=== PATIENT | female | born 1960 | race Caucasian/White ===

== ENCOUNTER → 2017-01-07 | Outpatient (CLI) | payer BC ==
--- NOTE | 2017-01-08 11:45 | MM ---
Reason for exam: screening (asymptomatic). Last mammogram was performed 1 year and 3 months ago. Physical Findings: A clinical breast exam by your physician is recommended on an annual basis and results should be correlated with mammographic findings. MG Screening Mammo w CAD Bilateral CC and MLO view(s) were taken. Prior study comparison: October 03, 2015, bilateral MG screening mammo w CAD. August 24, 2014, bilateral MG screening mammo w CAD. There are scattered fibroglandular densities. No significant changes when compared with prior studies. ASSESSMENT: Benign, BI-RAD 2 RECOMMENDATION: Routine screening mammogram of both breasts in 1 year.
== END | disposition home or self-care (01) ==
LOC: RADMAMWWP 15:23
PROVIDERS: ATTEND Family Medicine
DX: Z12.31 Encounter for screening mammogram for malignant neoplasm of breast (principal)

== ENCOUNTER → 2018-02-09 | Outpatient (CLI) | payer BC ==
--- NOTE | 2018-02-11 07:06 | MM ---
Reason for exam: screening (asymptomatic). Last mammogram was performed 1 year and 1 month ago. Physical Findings: A clinical breast exam by your physician is recommended on an annual basis and results should be correlated with mammographic findings. MG Screening Mammo w CAD Bilateral CC and MLO view(s) were taken. Prior study comparison: January 07, 2017, bilateral MG screening mammo w CAD. October 03, 2015, bilateral MG screening mammo w CAD. The breast tissue is heterogeneously dense. This may lower the sensitivity of mammography. No suspicious abnormality. No significant changes when compared with prior studies. ASSESSMENT: Negative, BI-RAD 1 RECOMMENDATION: Routine screening mammogram of both breasts in 1 year.
== END ==
LOC: RADMAMWWP 15:19
PROVIDERS: ATTEND Family Medicine
DX: Z12.31 Encounter for screening mammogram for malignant neoplasm of breast (principal)
CPT/HCPCS: 77067

== ENCOUNTER → 2018-02-22 | Outpatient (CLI) | payer BC ==
--- NOTE | 2018-02-23 11:35 | ECHOF ---
Referral Reason:R60.9 Edema MEASUREMENTS -------- HEIGHT: 170.2 cm WEIGHT: 95.3 kg BP: 146/70 IVSd: 1.5 cm (0.6 - 1.1) LVIDd: 3.3 cm (3.9 - 5.3) LVPWd: 1.6 cm (0.6 - 1.1) IVSs: 1.6 cm LVIDs: 1.9 cm LVPWs: 1.7 cm Ao Diam: 3.0 cm (2.0 - 3.7) AV Cusp: 2.3 cm (1.5 - 2.6) LA Diam: 3.1 cm (2.7 - 3.8) MV EXCURSION: 10.759 mm (> 18.000) MV EF SLOPE: 54 mm/s (70 - 150) EPSS: 1.2 cm MV E Richard: 0.47 m/s MV DecT: 144 ms MV A Richard: 0.81 m/s MV E/A Ratio: 0.58 RAP: 5.00 mmHg RVSP: 10.49 mmHg FINDINGS -------- Sinus rhythm. This was a technically good study. The left ventricular size is normal. There is moderate concentric left ventricular hypertrophy. O verall left ventricular systolic function is normal with, an EF between 55 - 60 %. The right ventricle is normal in size and function. The left atrium is normal in size. The right atrium is normal in size. The aortic valve is trileaflet, and appears structurally normal. No aortic stenosis or regurgitation. There is trace mitral regurgitation. Trace tricuspid regurgitation present. The right ventricular systolic pressure, as measured by Dopp ler, is 10.49mmHg. Pulmonic valve appears structurally normal. The aortic root size is normal. There is a trivial pericardial effusion present. CONCLUSIONS -------- 1. Sinus rhythm. 2. This was a technically good study. 3. The left ventricular size is normal. 4. There is moderate concentric left ventricular hypertrophy. 5. Overall left ventricular systolic function is normal with, an EF between 55 - 60 %. 6. The right ventricle is normal in size and function. 7. The left atrium is normal in size. 8. The right atrium is normal in size. 9. The aortic valve is trileaflet, and appears structurally normal. No aortic stenosis or regurgitati on. 10. There is trace mitral regurgitation. 11. Trace tricuspid regurgitation present. 12. The right ventricular systolic pressure, as measured by Doppler, is 10.49mmHg. 13. Pulmonic valve appears structurally normal. 14. The aortic root size is normal. 15. There is a trivial pericardial effusion present. RECREATION PROGRAMMER: Henrietta Richards RDCS
== END | disposition home or self-care (01) ==
LOC: RADECHMAIN 14:46
PROVIDERS: ATTEND Family Medicine
DX: I51.7 Cardiomegaly (principal); I31.3 Pericardial effusion (noninflammatory)
CPT/HCPCS: 93306

== ENCOUNTER 2018-02-28 11:19 | Emergency (ER) | payer BC, OTHER ==
[2018-02-28 11:25] VITALS: BP 168/90; PULSE 94; RESP 20; TEMP 98
--- NOTE | 2018-02-28 11:34 | ED ---
General Adult HPI - General Chief complaint: Extremity Injury, Upper Stated complaint: Wrist Injury-[facility] Time Seen by Provider: 02/28/18 11:28 Source: patient, RN notes reviewed Mode of arrival: ambulatory Limitations: no limitations - History of Present Illness Initial comments: Patient 57-year-old female presented to the emergency room today with a chief complaint of injury to the left wrist. 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 She states is worse with certain movements of supination. Patient denies any other complaints or symptoms. Patient denies any recent fever, chills, shortness of breath, chest pain, back pain, abdominal pain, nausea or vomiting, numbness or tingling, headaches or visual changes, or any other complaints. - Related Data Home Medications Medication Instructions Recorded Confirmed Aspirin EC [Ecotrin Low Dose] 81 mg PO DAILY 03/10/16 03/10/16 Atorvastatin [Lipitor] 10 mg PO DAILY 03/10/16 03/10/16 HYDROcodone/APAP 7.5-325MG [[place] 1 tab PO Q4H PRN 03/10/16 03/10/16 7.5-325] Ibuprofen [Ibuprofen] 600 mg PO Q6H PRN 03/10/16 03/10/16 Krill Oil 500 mg PO DAILY 03/10/16 03/10/16 Lidocaine 5% Ointment 1 applic TOPICAL BID 03/10/16 03/10/16 Multivitamins, Thera [Multivitamin] 1 tab PO DAILY 03/10/16 03/10/16 Mupirocin 2% Oint [Bactroban Oint] 1 applic TOPICAL BID 03/10/16 03/10/16 Omeprazole [PriLOSEC] 20 mg PO BID 03/10/16 03/10/16 Phentermine HCl [Adipex-P] 37.5 mg PO DAILY 03/10/16 03/10/16 Ranitidine HCl 150 mg PO DAILY 03/10/16 03/10/16 Sulfamethox-Tmp 800-160Mg [Bactrim 1 tab PO BID 03/10/16 03/10/16 DS 800-160 mg] Ubidecarenone [Co Q-10] 100 mg PO DAILY 03/10/16 03/10/16 amLODIPine BES/OLMESARTAN MED 1 tab PO DAILY 03/10/16 03/10/16 [Margo 5-20 mg Tablet] amLODIPine BESYLATE [Amlodipine 5 mg PO DAILY 03/10/16 03/10/16 Besylate] Previous Rx's Medication Instructions Recorded Sulfamethox-Tmp 800-160Mg [Bactrim 2 each PO Q12HR #56 tab 03/10/16 DS 800-160 mg] Allergies Allergy/AdvReac Type Severity Reaction Status Date / Time quinine Allergy Nausea & Verified 02/28/18 11:25 Vomiting Review of Systems ROS Statement: Those systems with pertinent positive or pertinent negative responses have been documented in the HPI. ROS Other: All systems not noted in ROS Statement are negative. Past Medical History Past Medical History: GERD/Reflux, Hypertension Additional Past Medical History / Comment(s): kidney stones History of Any Multi-Drug Resistant Organisms: None Reported Past Surgical History: Bladder Surgery, Hysterectomy Additional Past Surgical History / Comment(s): Partial Hysterectomy Past Anesthesia/Blood Transfusion Reactions: No Reported Reaction Past Psychological History: No Psychological Hx Reported Smoking Status: Never smoker Past Alcohol Use History: Occasional Past Drug Use History: None Reported - Past Family History Father Family Medical History: Coronary Artery Disease (CAD) Additional Family Medical History / Comment(s): CABG Brother(s) Family Medical History: Coronary Artery Disease (CAD) Additional Family Medical History / Comment(s): STENTS, CABG General Exam - General Exam Comments Initial Comments: General: The patient is awake and alert, in no distress, and does not appear acutely ill. Neck: The neck is supple, there is no tenderness or JVD. Musculoskeletal: Patient has normal appearance of the left wrist obvious deformity. Shows good range of motion all directions. No point tenderness of left shoulder, left elbow. No tenderness down into the digits. Patient does have mild tenderness to stool ulna. Patient is able to pronate and supinate. Able to fully extend and flex. Strength 4/5 due to pain. Sensations are intact pulses 2+. Neurological: A&O x 3. CN II-XII intact, There are no obvious motor or sensory deficits. Coordination appears grossly intact. Speech is normal. Skin: Skin is warm and dry and no rashes or lesions are noted. Psychiatric: Normal mood and affect. Limitations: no limitations Course Vital Signs 02/28/18 11:23 Temperature 98.0 F Pulse Rate 94 Respiratory 20 Rate Blood Pressure 168/90 O2 Sat by Pulse 98 Oximetry Medical Decision Making - Medical Decision Making X-rays reviewed negative for any acute fracture dislocation. Results were discussed with the patient per patient will be discharged home. Patient advised follow-up with employee health. Advised to continue to ice elevate the affected area. Advised use Wellington wrap for comfort Disposition Clinical Impression: Wrist sprain Disposition: HOME SELF-CARE Condition: Good Instructions: Wrist Sprain (ED) Additional Instructions: Please use ibuprofen for pain. Please continue to ice elevate the affected area at least 4 times a day for 20 minutes at a time. Please follow-up with employee health for further evaluation of the next 2 days. Please return to emergency room if the symptoms increase or worsen or for any other concerns. Referrals: Johnny Pruitt MD [Primary Care Provider] - 1-2 days Time of Disposition: 12:10
--- NOTE | 2018-02-28 11:49 | XR ---
EXAMINATION TYPE: XR wrist complete LT , 4 VIEWS DATE OF EXAM ORDERED: 02/28/2018 HISTORY: Pain. COMPARISON: None. FINDINGS: No fracture, dislocation or other acute osseous lesion is seen. IMPRESSION: NORMAL LEFT WRIST.
== END 2018-02-28 12:44 | disposition home or self-care (01) ==
LOC: EC 11:19
DX: S63.502A Unspecified sprain of left wrist, initial encounter (principal); K21.9 Gastro-esophageal reflux disease without esophagitis; I10 Essential (primary) hypertension; Z79.82 Long term (current) use of aspirin; Z79.899 Other long term (current) drug therapy; Z88.8 Allergy status to other drugs, medicaments and biological substances; X50.0XXA Overexertion from strenuous movement or load, initial encounter; Y93.89 Activity, other specified; Y92.69 Other specified industrial and construction area as the place of occurrence of the external cause; Y99.0 Civilian activity done for income or pay
CPT/HCPCS: 99283

== ENCOUNTER → 2018-03-02 | Outpatient (CLI) | payer OTHER ==
--- NOTE | 2018-03-02 11:29 | XR ---
EXAMINATION TYPE: XR shoulder complete LT DATE OF EXAM: 03/02/2018 COMPARISON: NONE HISTORY: 57 year-old female left shoulder sprain, pain for 3 days after lifting TECHNIQUE: 3 views FINDINGS: Mild degenerative change at the AC joint. The joint remains congruent. Subacromial space is preserved . No tendinous or bursal calcifications. No acute fracture, subluxation, or dislocation. IMPRESSION: No acute osseous abnormality seen. Mild AC joint OA.
== END | disposition home or self-care (01) ==
LOC: RADXRMAIN 11:07
PROVIDERS: ATTEND Emergency Medicine
DX: M17.12 Unilateral primary osteoarthritis, left knee (principal); S43.492A Other sprain of left shoulder joint, initial encounter

== ENCOUNTER → 2018-05-18 | Outpatient (CLI) | payer OTHER ==
--- NOTE | 2018-05-18 15:28 | MR ---
EXAMINATION TYPE: MR wrist arthrogram LT w con DATE OF EXAM: 05/18/2018 COMPARISON: NONE HISTORY: Sprain of left wrist CONTRAST: Standard multiplanar, multisequence MRI departmental protocol utilizing 3ml multihance intra-articula r contrast. FINDINGS: There is some contrast opacification into the desired radiocarpal joint with some dorsal ex travasation into the subcutaneous tissue and extensor tendons along dorsal surface. Triangular fibrocartilage complex is abnormal with partial tear and increased signal at lateral aspec t of distal radial articulation. There is tearing of the central disc. There is increased signal part ial tears of the fovea articulation of the distal ulna and more prominent partial tear at the ulnar s tyloid insertion. There is subchondral cystic change in the distal ulna with heterogeneous increased signal along ulnar styloid consistent with osseous contusion and/or bone marrow edema. SL and LT ligaments are felt intact. No contrast extension into midcarpal rows is identified. There is focal split tear in the ECU tendon axial image 3 . There is subchondral cystic change in the distal volar aspect of the triquetrum a.m. with adjacent gallagher bchondral cystic change in the dorsal aspect of the pisiform consistent with triquetral pisiform oste oarthritis. There is abnormal articulation of the lunate with hamate or type II lunate which is an articulation v ariant. There is degenerative changes with subchondral cystic change at the base of the hamate and ad jacent ulnar aspect of lunate raising concern for hamatolunate impingement. There is prominent thickening of the medial nerve at level of carpal tunnel axial image 8 with cross- sectional area calculated 30 sq mm. IMPRESSION: 1. Abnormal triangular fibrocartilage complex with partial tear central disc and partial tears of all articulations. 2. MRI Findings consistent with carpal tunnel syndrome noted as detailed above. 3. 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 4. Focal split tear compartment 6 ECU tendon. 5. Subchondral cystic change and osseous contusion distal ulna and ulnar styloid. 6. Osteoarthritic changes triquetral pisiform articulation.
--- NOTE | 2018-05-18 15:37 | FL ---
EXAMINATION TYPE: FL arthrogram wrist LT DATE OF EXAM: 05/18/2018 COMPARISON: NONE HISTORY: Sprain injury with pain. TECHNIQUE: Fluoroscopy assisted left wrist arthrogram. A total of 76 seconds of fluoroscopic time was utilized during procedure. Approximately 2 cc of 50/50 of 0.4 cc of gadolinium diluted in 10 cc of s terile saline with equal parts 10 cc of Omnipaque 180 was attempted to be injected into the radiocarp al joint space. Single spot image is obtained after contrast injection. FINDINGS: Procedure was explained to patient. Overlying skin was cleansed with Betadine. Lidocaine wa s used as anesthetic. Under fluoroscopic guidance, radiocarpal joint space is accessed with 25-gauge needle. Patient had pain and anxiety during procedure making fluoroscopic injection impossible and vega d to proceed with injection after felt successful fluoroscopic positioning. Patient tolerated procedure well without any immediate complication. Patient was taken to MRI for pos t procedure imaging. This report will be dictated separately. IMPRESSION: As Above.
== END | disposition home or self-care (01) ==
LOC: RADFLMAIN 13:04
PROVIDERS: ATTEND Emergency Medicine
DX: M19.032 Primary osteoarthritis, left wrist (principal); S60.212A Contusion of left wrist, initial encounter; S66.912A Strain of unspecified muscle, fascia and tendon at wrist and hand level, left hand, initial encounter; M25.832 Other specified joint disorders, left wrist; R93.7 Abnormal findings on diagnostic imaging of other parts of musculoskeletal system
CPT/HCPCS: 25246; 73115; 73222; Q9965; A9577

== ENCOUNTER 2018-09-24 09:58 | Day surgery (SDC) | payer OTHER ==
[2018-09-23 09:03] VITALS: BMI 33.6
[~2018-09-24 09:58] MED LIST: LACTATED RINGERS 1,000 ML IV SCH
[2018-09-24] MEDS ORDERED: LIDOCAINE 1% 20 ML VIAL (10MG/ML) FOR IV START INTRADERMA ONE (10:34)
[2018-09-24 10:45] VITALS: TEMP 96.6
[2018-09-24] MEDS ORDERED: MIDAZOLAM 2 MG/2 ML VIAL IVP ONE ×2 (11:35→11:40)
[2018-09-24] MEDS ORDERED: fentaNYL (PF) 50 MCG/ML 2 ML AMP ONE (12:02)
[2018-09-24] MEDS ORDERED: PROPOFOL 10 MG/ML 20 ML VIAL IV ONE (12:02)
[2018-09-24] MEDS ORDERED: LIDOCAINE 1% INJ 10MG/ML (20 ML MDV) ONE (12:02)
[2018-09-24] MEDS ORDERED: MIDAZOLAM 2 MG/2 ML VIAL ONE (12:02)
--- NOTE | 2018-09-24 12:40 | P.PCN ---
Date of Procedure: 09/24/18 Procedure(s) Performed: Brief history: Patient is a pleasant 58-year-old white female, scheduled for an elective upper endoscopy as well as colonoscopy as a part of evaluation of long-standing history of GERD, intermittent epigastric pain and early satiety for the last few months duration. Has been on omeprazole 20 mg daily and Zantac at bedtime for relief in her symptoms. She also has prior history of colon polyps and hence scheduled for colonoscopy today. Her last colonoscopy was 5 years ago. Procedure performed: Esophagogastroduodenoscopy with biopsy Colonoscopy with snare polypectomy Preoperative diagnosis: Anesthesia: MAC Procedure: After informed consent was obtained from the patient was brought into the endoscopy unit and IV sedation was administered by anesthesia under continuous monitoring. Initially upper endoscopy was done. The Olympus GF 160 video endoscope was inserted inserted into the mouth and esophagus intubated without any difficulty and was gradually advanced into the stomach and duodenum and carefully examined. The bulb and second part of the duodenum appeared normal. The scope was then withdrawn into the stomach adequately insufflated with air and upon careful examination the antrum had mild gastritis and biopsies were done from this area. The body, cardia and fundus appeared normal. The scope was then withdrawn into the esophagus. The GE junction was located at 439 cm to the incisors. It appeared reguDavidow superficial erosions consistent with LA grade B reflux esophagitis..Rest of the esophagus appeared normal. Patient tolerated the procedure well. At this time the patient continued to remain sedation. Initial digital rectal examination was normal. Olympus CF 160 video colonoscope was then inserted into the rectum and gradually advanced to the cecum without any difficulty. Careful examination was performed as the scope was gradually being withdrawn. The prep was excellent. In the base of cecum there was a 3 mm sessile polyp removed by snare polypectomy. In the ascending colon there was a 1 cm polyp removed by snare polypectomy. In the hepatic flexure there was a 5 mm polyp removed by snare polypectomy. Rest of the cecum, ascending colon, transverse colon, descending colon, sigmoid colon and rectum appeared normal. Scattered sigmoid diverticulosis. Retroflexion was performed in the rectum and no lesions were noted. Patient tolerated the procedure well. Impression: 1. Upper endoscopy revealed mild antral gastritis with LA grade B reflux esophagitis. 2. Colonoscopy revealed: 3 mm sessile cecal polyp status post polypectomy 1 cm ascending colon polyp status post polypectomy 5 mm hepatic flexure polyp status post polypectomy Scattered sigmoid diverticulosis Recommendations: Findings of this examination were discussed with the patient as well as her family. She was advised to follow with the biopsy results. She will continue with omeprazole 20 mg daily and follow antireflux measures. If the biopsies of colon polyps show an adenoma, she can have a repeat colonoscopy in 3 years
[2018-09-24 12:56] VITALS: BP 128/78; PULSE 62; RESP 16
== END 2018-09-24 13:29 | disposition home or self-care (01) ==
LOC: ORWHC2ENDO 09:58
PROVIDERS: ATTEND Internal Medicine Gastroenterology
DX: Z12.11 Encounter for screening for malignant neoplasm of colon (principal); K29.50 Unspecified chronic gastritis without bleeding; K20.0 Eosinophilic esophagitis; D12.0 Benign neoplasm of cecum; D12.2 Benign neoplasm of ascending colon; D12.3 Benign neoplasm of transverse colon; K21.0 Gastro-esophageal reflux disease with esophagitis; K57.30 Diverticulosis of large intestine without perforation or abscess without bleeding; Z86.010 Personal history of colon polyps; I10 Essential (primary) hypertension; Z87.442 Personal history of urinary calculi; F41.9 Anxiety disorder, unspecified; Z79.899 Other long term (current) drug therapy; Z79.1 Long term (current) use of non-steroidal anti-inflammatories (NSAID); Z79.82 Long term (current) use of aspirin; Z79.891 Long term (current) use of opiate analgesic; Z88.8 Allergy status to other drugs, medicaments and biological substances
CPT/HCPCS: 88305; 45385; 43239; J2250; J2001; J3010; J2704

== ENCOUNTER → 2018-10-11 | Outpatient (CLI) | payer OTHER ==
--- NOTE | 2018-10-11 22:16 | MR ---
EXAMINATION TYPE: MR shoulder RT wo con DATE OF EXAM: 10/11/2018 COMPARISON: Plain film 10/19/2017 HISTORY: Injury of RTC right shoulder TECHNIQUE: Multiplanar, multisequence imaging of the right shoulder is performed without contrast. FINDINGS: Rotator Cuff: There is abnormal increased signal within the rotator cuff tendon. The tendon appears t hickened. Fluid signal extends throughout portion of the rotator cuff insertion compatible with parti al thickness tear, rim rent tear suspected. Acromioclavicular Joint: Hypertrophic changes at the acromioclavicular joint causes mass effect on th e musculotendinous junction of supraspinatus Glenohumeral Joint: Intact Labrum: The labrum appears grossly intact given limitation of non-arthrogram study. Biceps Tendon: The long head of biceps is in normal location within bicipital groove. Bone marrow signal: Pseudocysts present within the humeral head. Other: There is a distal acromial spur. Subacromial subdeltoid bursa fluid signal is present.. IMPRESSION: Partial thickness tear the rotator cuff with tendinosis. Correlate for impingement.
== END | disposition home or self-care (01) ==
LOC: RADMRIMAIN 13:33
PROVIDERS: ATTEND Family Medicine
DX: S46.011A Strain of muscle(s) and tendon(s) of the rotator cuff of right shoulder, initial encounter (principal); M67.813 Other specified disorders of tendon, right shoulder

== ENCOUNTER → 2020-06-12 | Outpatient (CLI) | payer OTHER ==
--- NOTE | 2020-06-13 10:19 | MM ---
Reason for exam: screening (asymptomatic). Last mammogram was performed 2 years and 4 months ago. Physical Findings: A clinical breast exam by your physician is recommended on an annual basis and results should be correlated with mammographic findings. MG Screening Mammo w CAD Bilateral CC and MLO view(s) were taken. Prior study comparison: February 09, 2018, bilateral MG screening mammo w CAD. January 07, 2017, bilateral MG screening mammo w CAD. There are scattered fibroglandular densities. Benign appearing calcifications in the right breast. ASSESSMENT: Benign, BI-RAD 2 RECOMMENDATION: Routine screening mammogram of both breasts in 1 year.
== END | disposition home or self-care (01) ==
LOC: RADMAMWWP 14:50
PROVIDERS: ATTEND Family Medicine
DX: Z12.31 Encounter for screening mammogram for malignant neoplasm of breast (principal)
CPT/HCPCS: 77067

== ENCOUNTER → 2020-07-12 | Outpatient (CLI) | payer OTHER ==
--- NOTE | 2020-07-12 09:37 | CT ---
EXAMINATION TYPE: CT abdomen pelvis wo con DATE OF EXAM: 07/12/2020 HISTORY: hematuria, urinary pressure, dysuria, frequency of urination CT DLP: 786.5 mGycm. Automated Exposure Control for Dose Reduction was Utilized. TECHNIQUE: CT scan of the abdomen and pelvis is performed without oral or IV contrast. COMPARISON: NONE FINDINGS: Within the limitations of a non-contrast study, the following observations are made. LUNG BASES: There is thin-walled 1.1 cm cyst in the periphery of the right lung base axial image 1. LIVER/GB: Liver is heterogeneously isointense relative to spleen consistent with mild fatty infiltrat ion. PANCREAS: No significant abnormality is seen. SPLEEN: No significant abnormality is seen. ADRENALS: Nonspecific 1.2 cm round hyperdense right adrenal nodule or mass axial image 43. Lesion fav ored benign based on size. At minimum imaging follow-up in 12 months time to reassess. More aggressiv e approach would be follow-up adrenal protocol CT or MRI. KIDNEYS: No right-sided renal stones or hydronephrosis. No left-sided renal calculi. Mild asymmetric fullness to left renal pelvis and calyceal dilatation with mild hydroureter. Bladder is low-lying and poorly distended. There is suspected 4 mm distal ureter calculus in the lower pelvis seen best coron al image 62 with appears to have surrounding mildly dilated ureter. A few adjacent scattered pelvic p hleboliths. BOWEL: Low positioned cecum into the anterior lower right pelvis. A few sigmoid colonic diverticula. No suspicious small or large bowel dilatation. GENITAL ORGANS: Uterus surgically absent or markedly atrophic. Overall low lying pelvic structures no hair. LYMPH NODES: No greater than 1cm abdominal or pelvic lymph nodes are appreciated. OSSEOUS STRUCTURES: Transitional type vertebra lumbosacral junction. Slight underlying scoliotic curv ature. Grade 1 anterolisthesis L5 on L6. [id number] axial joint space loss in both hips. OTHER: Mild calcified plaque distal abdominal aorta. IMPRESSION: Uterus surgically absent. Low lying pelvic structures or pelvic floor dysfunction. There is 4 mm calculus in the distal low lying ureter causing asymmetric mild to minimal left-sided hydrone phrosis.
== END | disposition home or self-care (01) ==
LOC: RADCTMAIN 08:32
PROVIDERS: ATTEND Physician Assistant
DX: N13.2 Hydronephrosis with renal and ureteral calculous obstruction (principal); Z90.710 Acquired absence of both cervix and uterus
CPT/HCPCS: 74176

== ENCOUNTER → 2020-08-08 | Outpatient (CLI) | payer OTHER ==
[2020-08-08 12:02] LABS: African American GFR (CKD) >90 (>60 ml/min/1.73 sqM); Anion Gap 8 mmol/L; Blood Urea Nitrogen 17 mg/dL (7-17); Calcium 9.5 mg/dL (8.4-10.2); Carbon Dioxide 30 mmol/L (22-30); Chloride 100 mmol/L (98-107); Glucose 96 mg/dL (74-99); Non-African American GFR(CKD) >90 (>60 ml/min/1.73 sqM); Sodium 138 mmol/L (137-145)
[2020-08-08 12:38] LABS: Basophils % (A) 1 %; Eosinophils # (A) 0.2 k/uL (0-0.7); Eosinophils % (A) 3 %; HCT 43.6 % (34.0-46.0); HGB 14.3 gm/dL (11.4-16.0); Lymphocytes # (A) 1.5 k/uL (1.0-4.8); Lymphocytes % (A) 27 %; MCH 27.9 pg (25.0-35.0); MCHC 32.7 g/dL (31.0-37.0); MCV 85.2 fL (80.0-100.0); Mean Platelet Volume 7.7; Monocytes # (A) 0.3 k/uL (0-1.0); Monocytes % (A) 5 %; Neutrophils # (A) 3.6 k/uL (1.3-7.7); Neutrophils % (A) 63 %; Platelet Count 249 k/uL (150-450); RBC 5.11 m/uL (3.80-5.40); RDW 13.4 % (11.5-15.5); WBC 5.7 k/uL (3.8-10.6)
== END | disposition home or self-care (01) ==
LOC: LABPAT 10:06
PROVIDERS: ATTEND Urology
DX: Z01.818 Encounter for other preprocedural examination (principal); N20.1 Calculus of ureter
CPT/HCPCS: 80048; 85025

== ENCOUNTER 2020-08-15 06:09 | Day surgery (SDC) | payer OTHER ==
[2020-08-13 11:54] VITALS: BMI 32.1
--- NOTE | 2020-08-14 20:58 | P.GSHP ---
History of Present Illness H&P Date: 08/14/20 Chief Complaint: Left ureteral calculus The patient is a 60-year-old female with a history of intermittent suprapubic pain and urinary urgency which dates back to 01/2020. The patient has been treated on several times with antibiotics due to presumed urinary tract infections with no improvement in her symptoms. She has experienced occasional episodes of gross hematuria. She says she currently voids every 2-3 hours during the day and 3 times at night. She says prior to 01/2020 her frequency was much less. CT scan of the abdomen and pelvis on 07/12/2020 showed a 4.4 mm calculus near the left ureterovesical junction with mild hydroureter. Patient has a history of right ureteral calculus treated with ureteroscopy with lithotripsy in 2014. The calculus was composed of calcium oxylate. Patient was seen by me on 08/03/2020 and I reviewed the CT scan with her. I dis cussed further observation versus left ureteroscopy with lithotripsy. The patient prefers the latter and is admitted for this purpose. She had a preoperative urine culture on 08/03 that grew 50-100,000 colonies of Enterococcus faecalis. This has been treated with amoxicillin. - Constitutional Constitutional: Denies chills, Denies fever - Cardiovascular Cardiovascular: Denies chest pain, Denies palpitations, Denies shortness of breath - Respiratory Respiratory: Denies cough, Denies wheezing - Gastrointestinal Gastrointestinal: Reports heartburn - Genitourinary (Female) Genitourinary: Reports as per HPI Past Medical History Past Medical History: Diabetes Mellitus, GERD/Reflux, Hypertension, Skin Disorder Additional Past Medical History / Comment(s): hx kidney stones, hiatal hernia, hx of partial retinal tear left eye, arthritis in shoulders and hands, on Rx for UTI, 15 bee stings last night on arms,leg and ears. History of Any Multi-Drug Resistant Organisms: None Reported Past Surgical History: Bladder Surgery (urethral suspension x 2), Hysterectomy, Orthopedic Surgery (Left carpal tunnel) Additional Past Surgical History / Comment(s): Partial Hysterectomy, bladder suspension x2, lithotripsy, left carpal tunnel, epidural steriod injection, colonoscopy, esau eye surgery to relieve pressure Past Anesthesia/Blood Transfusion Reactions: Previous Problems w/ Anesthesia Additional Past Anesthesia/Blood Transfusion Reaction / Comment(s): mother had problem "coming out" Smoking Status: Never smoker, Second hand smoke exposure - Past Family History Mother Family Medical History: No Reported History Father Family Medical History: Coronary Artery Disease (CAD) Additional Family Medical History / Comment(s): CABG Brother(s) Family Medical History: Coronary Artery Disease (CAD) Additional Family Medical History / Comment(s): STENTS, CABG Medications and Allergies Home Medications Medication Instructions Recorded Confirmed Type Aspirin EC [Ecotrin Low Dose] 81 mg PO DAILY 03/10/16 08/13/20 History Atorvastatin [Lipitor] 10 mg PO HS 03/10/16 08/13/20 History Multivitamins, Thera [Multivitamin] 1 tab PO DAILY 03/10/16 08/13/20 History ALPRAZolam [Xanax] 0.25 mg PO DAILY PRN 09/23/18 08/13/20 History Cholecalciferol [Vitamin D3] 5,000 unit PO DAILY 09/23/18 08/13/20 History Ibuprofen [Motrin] 800 mg PO Q6H PRN 09/23/18 08/13/20 History Losartan/Hydrochlorothiazide 1 each PO QAM 09/23/18 08/13/20 History [Losartan-Hctz 100-25 mg Tab] Magnesium Gluconate [Magonate] 500 mg PO HS 09/23/18 08/13/20 History Stool Softener 2 tab PO BID 09/23/18 08/13/20 History atenoloL [Tenormin] 50 mg PO BID 09/23/18 08/13/20 History Acetaminophen Tab [Tylenol Tab] 1,000 mg PO DIRECTED PRN 08/13/20 08/13/20 History Amoxicillin 250 mg PO TID 08/13/20 08/13/20 History Hydrocodone/Acetaminophen [[place] 1 tab PO Q8HR PRN 08/13/20 08/13/20 History 5-325] Hydrocortisone Cream 1 applic TOPICAL DIRECTED PRN 08/13/20 08/13/20 History [Hydrocortisone 2.5% Cream] L.acidoph,Paracasei, B.lactis 1 each PO BID 08/13/20 08/13/20 History [Probiotic] Nystatin 100,000Unit/gm Cream 1 applic TOPICAL DIRECTED PRN 08/13/20 08/13/20 History [Mycostatin Cream] Pantoprazole [Protonix] 40 mg PO QAM 08/13/20 08/13/20 History Phentermine HCl 37.5 mg PO DAILY 08/13/20 08/13/20 History Sucralfate [Carafate] 1 gm PO TID 08/13/20 08/13/20 History metFORMIN HCL [Glucophage] 500 mg PO BID 08/13/20 08/13/20 History Allergies Allergy/AdvReac Type Severity Reaction Status Date / Time quinine Allergy Nausea & Verified 08/13/20 11:28 Vomiting, dizzy Surgical - Exam - General well developed, well nourished, no distress, obese - ENT no hearing loss - Neck no masses - Respiratory normal respiratory effort, clear to auscultation - Cardiovascular Rhythm: regular Abnormal Heart Sounds: no systolic murmur, no diastolic murmur - Abdomen Abdomen: soft, non tender, no organomegaly Assessment and Plan (1) Calculus of ureter Narrative/Plan: The patient will undergo cystoscopy with left ureteroscopy for treatment of her distal left ureteral calculus. She is aware of the operative risks which include anesthesia, bleeding, infection, ureteral injury and the possible need for double-J catheter. Status: Acute Code(s): N20.1 - CALCULUS OF URETER SNOMED Code(s): 80306768
[~2020-08-15 06:09] MED LIST changes: +DEXAMETHASONE SOD PHOSPHATE 10 MG/ML 1 ML VIAL IV ONE; +HYDROmorphone 0.5 MG/0.5 ML SYRINGE IVP PRN; +MIDAZOLAM 2 MG/2 ML VIAL IV PRN; +ONDANSETRON 4 MG/2 ML VIAL IVP ONE; +fentaNYL (PF) 50 MCG/ML 2 ML AMP IV PRN; +fentaNYL (PF) 50 MCG/ML 2 ML AMP IVP PRN
[2020-08-15 07:05] VITALS: RESP 16
[2020-08-15 07:28] LABS: Glucose,Whole Blood 113 mg/dL (75-99)
[2020-08-15] MEDS ORDERED: LIDOCAINE 1% INJ 10MG/ML (20 ML MDV) ONE (07:30)
[2020-08-15] MEDS ORDERED: MIDAZOLAM 2 MG/2 ML VIAL ONE (07:30)
[2020-08-15] MEDS ORDERED: SUCCINYLCHOLINE CHLORIDE 100 MG/5 ML SYR IV ONE (07:30)
[2020-08-15] MEDS ORDERED: fentaNYL (PF) 50 MCG/ML 2 ML AMP ONE (07:30)
[2020-08-15] MEDS ORDERED: PROPOFOL 10 MG/ML 20 ML VIAL IV ONE (07:30)
[2020-08-15] MEDS ORDERED: SODIUM CHLORIDE 0.9% 50 ML with ceFAZolin 1,000 MG IV ONE ×2 (07:36)
[2020-08-15] MEDS ORDERED: IOPAMIDOL-300 50ML BTL MISCELLANE ONE (07:56)
--- NOTE | 2020-08-15 08:24 | P.OP ---
Date of Procedure: 08/15/20 Preoperative Diagnosis: Distal left ureteral calculus Postoperative Diagnosis: Normal exam Procedure(s) Performed: Cystoscopy with left retrograde ureterogram Anesthesia: AIDANA Surgeon: Clement Cortez Estimated Blood Loss (ml): 0 Pathology: none sent Condition: stable Disposition: PACU Indications for Procedure: The patient is a 60-year-old female with a history of urolithiasis who has experienced lower abdominal pain, frequency and urgency since January of this year. Computed tomography scan of the abdomen and pelvis in 06/2020 identified a 4 mm calculus near the left ureterovesical junction. Patient continues to have symptoms and has not recovered a calculus despite straining her urine. Cystoscopy with left ureteroscopy and lithotripsy was planned. Description of Procedure: The patient was taken to the operating suite where adequate general anesthesia via orotracheal intubation was instituted. She was placed in the dorsal lithotomy position with her legs suspended on padded Kel stirrups. Pneumatic compression stockings were applied to the lower legs. The genitalia was prepped with Betadine soap and draped in a sterile fashion. The external genitalia was unremarkable. The 21-Emirati cystoscope sheath with 30 lens was passed through the urethra and into the bladder. The bladder was examined and was free of tumor, foreign body and diverticulum. Patient had a moderate-sized cystocele which initially made identification of the ureteral orifices difficult. Both ureteral orifices appeared normal. A left distal ureterogram was then performed using an 8-Emirati cone-tipped catheter. There was no filling in the left ureter up to the region of the pelvic brim. The contrast drained from the left ureter immediately following removal of the ureteral catheter. It was my feeling at this point that the patient most likely passed the calculus without being aware. The bladder was drained and the cystoscope was withdrawn Patient tolerated procedure well and left the operative room awake and in satisfactory condition there is no blood loss.
[2020-08-15 08:30] VITALS: TEMP 96.8
--- NOTE | 2020-08-15 08:51 | FL ---
EXAMINATION TYPE: FL urography retrograde DATE OF EXAM: 08/15/2020 COMPARISON: NONE HISTORY: cysto/ lt ureter TECHNIQUE: Fluoroscopy. FINDINGS: cysto lt ureter issues. 18 sec fl time. 1 pic scanned IMPRESSION: As Above.
[2020-08-15 08:57] LABS: Glucose,Whole Blood 116 mg/dL (75-99)
[2020-08-15 09:51] VITALS: BP 156/70; PULSE 66
== END 2020-08-15 10:07 | disposition home or self-care (01) ==
LOC: OR 06:09
PROVIDERS: ATTEND Urology
DX: N20.1 Calculus of ureter (principal); N81.10 Cystocele, unspecified; I10 Essential (primary) hypertension; E11.9 Type 2 diabetes mellitus without complications; K21.9 Gastro-esophageal reflux disease without esophagitis; Z87.440 Personal history of urinary (tract) infections; K44.9 Diaphragmatic hernia without obstruction or gangrene; Z79.82 Long term (current) use of aspirin; Z79.84 Long term (current) use of oral hypoglycemic drugs; Z79.899 Other long term (current) drug therapy; Z90.710 Acquired absence of both cervix and uterus; Z98.890 Other specified postprocedural states; Z87.442 Personal history of urinary calculi; M19.90 Unspecified osteoarthritis, unspecified site; Z77.22 Contact with and (suspected) exposure to environmental tobacco smoke (acute) (chronic); Z82.49 Family history of ischemic heart disease and other diseases of the circulatory system; Z79.891 Long term (current) use of opiate analgesic; E66.9 Obesity, unspecified; Z68.31 Body mass index [BMI] 31.0-31.9, adult
CPT/HCPCS: 52005; 74420; C1758; J2250; J1100; J2405; J0690; J2001; J3010; J0330; J2704; J1170; Q9967

== ENCOUNTER → 2020-09-26 | Outpatient (CLI) | payer OTHER ==
[2020-09-26 16:03] LABS: African American GFR (CKD) >90 (>60 ml/min/1.73 sqM); Blood Urea Nitrogen 16 mg/dL (7-17); Non-African American GFR(CKD) 84 (>60 ml/min/1.73 sqM)
--- NOTE | 2020-09-26 21:43 | CT ---
EXAMINATION TYPE: CT abdomen pelvis w con DATE OF EXAM: 09/26/2020 COMPARISON: 07/12/2020 INDICATION: Gross hematuria. DLP: 1676 mGycm, Automated exposure control for dose reduction was used. CONTRAST: 100ml mL of Isovue 300. Study performed with Oral Contrast TECHNIQUE: Axial images were obtained from above the diaphragm to the pubic rami in the axial plane a t 5 mm thick sections. Reconstructed images are reviewed on the computer in the coronal plane. FINDINGS: Limited CT sections are obtained the lung bases. The lung bases are clear. Small pneumatocele may b e in the right lung base. CT ABDOMEN: Liver: Small cyst may be on the anterior right lobe liver. Liver is otherwise unremarkable without ma sses or cysts Spleen: Normal Pancreas: Normal Adrenal glands: The adrenal glands are normal. Gallbladder: Normal Kidneys: No masses are evident. No hydronephrosis is present. No cysts are present. Delayed images were obtained through the kidneys, which remain unremarkable. Aorta: Vascular calcification is within the aorta. Inferior vena cava: Normal. CT PELVIS: Loops of bowel within the abdomen and pelvis are normal. Scattered diverticuli are within the sigmoi d colon. No acute diverticulitis is evident. There are loops of bowel which are incompletely disten ded or lack oral contrast limiting their evaluation. Appendix: Normal as visualized. Urinary bladder: Small calcifications in the dependent portion of the left urinary bladder is better visualized on the coronal plane images. Series 8 image 64. Genitourinary structures: Uterus and ovaries are not identified Osseous structures: No suspicious lytic or sclerotic lesions. IMPRESSIONS: 1. 0.4 cm nonobstructing urinary bladder calcification. This could be recent passage of a ureteral s tone
== END | disposition home or self-care (01) ==
LOC: RADCTMAIN 15:30
PROVIDERS: ATTEND Urology
DX: R31.0 Gross hematuria (principal); Z88.3 Allergy status to other anti-infective agents
CPT/HCPCS: 82565; 84520; 74177; 36415; Q9967

== ENCOUNTER → 2021-06-13 | Outpatient (CLI) | payer OTHER ==
--- NOTE | 2021-06-14 11:41 | MM ---
Reason for exam: screening (asymptomatic). Last mammogram was performed 1 year ago. Physical Findings: A clinical breast exam by your physician is recommended on an annual basis and results should be correlated with mammographic findings. MG 3D Screening Mammo W/Cad Bilateral CC and MLO view(s) were taken. Prior study comparison: June 12, 2020, bilateral MG screening mammo w CAD. February 09, 2018, bilateral MG screening mammo w CAD. There are scattered fibroglandular densities. No significant changes when compared with prior studies. ASSESSMENT: Benign, BI-RAD 2 RECOMMENDATION: Routine screening mammogram of both breasts in 1 year.
== END | disposition home or self-care (01) ==
LOC: RADMAMWWP 16:21
PROVIDERS: ATTEND Family Medicine
DX: Z12.31 Encounter for screening mammogram for malignant neoplasm of breast (principal)
CPT/HCPCS: 77063; 77067

== ENCOUNTER → 2021-08-15 | Outpatient (CLI) | payer OTHER ==
--- NOTE | 2021-08-16 11:47 | MR ---
EXAMINATION TYPE: MR lumbar spine wo con DATE OF EXAM: 08/15/2021 COMPARISON: CT 09/26/2020 HISTORY: LBP, RLE radiculopathy x 4 mos. TECHNIQUE: Multiplanar, multisequence images of the lumbar spine were acquired without IV contrast. L1-L2: Normal disc appearance without desiccation. No herniation, protrusion or disc bulging. No ca nal stenosis is present. Foramina are patent bilaterally. L2-L3: Posterior disc bulge causes only minimal anterior mass effect on the thecal sac. There is some facet arthropathy change. No significant spinal stenosis or foraminal encroachment. L3-L4: Posterior disc bulge is somewhat eccentric towards the right causing anterolateral mass effect on the thecal sac. Circumferential extension endplate disc complex encroaches minimally on the infer ior aspect of the foramina. There is facet arthropathy with hypertrophy ligamentum flavum causing nohemy e posterior lateral aspect of the thecal sac right greater than left. Only mild spinal stenosis L4-L5: There is severe spinal stenosis present contributed by the listhesis and hypertrophic changes of the facets and ligamentum flavum, there is encroachment on the lateral recesses. Listhesis contrib utes cause bilateral foraminal encroachment. L5-S1: There is a minimal posterior broad-based disc bulge present. There is no significant foraminal encroachment or spinal stenosis. There is some facet arthropathy changes. Lumbar segments are intact. No paraspinal masses are identified. Conus medullaris has a normal appe arance. There is an anterolisthesis grade 1 L4-5. Lumbar vertebral bodies show preserved height. Ther e is multilevel spondylosis with endplate discogenic marrow signal change. Loss of disc height and si gnal is greatest at L3-4, L4-5, there is loss of signal L5-S1 compatible with disc desiccation and de generative disc disease. There is mild spinal curvature. IMPRESSION: Degenerative disc disease, facet arthropathy, significant spinal stenosis and spinal listhesis noted at L4-5
== END | disposition home or self-care (01) ==
LOC: RADMRIMAIN 12:18
PROVIDERS: ATTEND Physical Medicine & Rehabilitation
DX: M51.16 Intervertebral disc disorders with radiculopathy, lumbar region (principal); M48.061 Spinal stenosis, lumbar region without neurogenic claudication; M43.16 Spondylolisthesis, lumbar region; M47.26 Other spondylosis with radiculopathy, lumbar region
CPT/HCPCS: 72148

== ENCOUNTER → 2022-06-16 | Outpatient (CLI) | payer OTHER ==
--- NOTE | 2022-06-16 10:50 | MM ---
Reason for Exam: Screening (asymptomatic). Last screening mammogram was performed 12 month(s) ago. Patient History: Menarche at age 17. First Full-Term at age 22. Hysterectomy at age 34. Risk Values: Sheryl 5 year model risk: 1.2%. NCI Lifetime model risk: 5.8%. Prior Study Comparison: 02/09/2018 Bilateral Screening Mammogram, [facility]. 06/12/2020 Bilateral Screening Mammogram, [facility]. 06/13/2021 Bilateral Screening Mammogram, [facility]. Tissue Density: There are scattered fibroglandular densities. Findings: Analyzed By CAD. There is no suspicious group of microcalcifications or new suspicious mass in either breast. Overall Assessment: Negative, BI-RAD 1 Management: Screening Mammogram of both breasts in 1 year. 1. Patient should continue monthly self breast exams. 2. A clinical breast exam by your physician is recommended on an annual basis. 3. This exam should not preclude additional follow-up of suspicious palpable abnormalities. Electronically signed and approved by: Moises Dorsey M.D. Radiologist
== END | disposition home or self-care (01) ==
LOC: RADMAMWWP 06:56
PROVIDERS: ATTEND Family Medicine
DX: Z12.31 Encounter for screening mammogram for malignant neoplasm of breast (principal)
CPT/HCPCS: 77063; 77067

== ENCOUNTER → 2022-09-01 | Outpatient (CLI) | payer OTHER ==
--- NOTE | 2022-09-01 16:00 | XR ---
EXAMINATION TYPE: XR knee complete LT DATE OF EXAM: 09/01/2022 3:55 PM INDICATION: Patient age:Female; 62 years old; Reason for study: M25.562 Left knee pain; [facility]. COMPARISON: None. TECHNIQUE: The Left knee(s) was examined in 3 projections. Frontal, lateral and oblique. FINDINGS: No evidence of any acute osseous pathology, joint space narrowing, soft tissue swelling, or joint effusion is noted. IMPRESSION: No acute osseous pathology.
== END | disposition home or self-care (01) ==
LOC: RADXRMAIN 15:31
PROVIDERS: ATTEND Internal Medicine
DX: M25.562 Pain in left knee (principal)

== ENCOUNTER → 2023-07-07 | Outpatient (CLI) | payer BC ==
--- NOTE | 2023-07-08 15:54 | MM ---
Reason for Exam: Screening (asymptomatic). Last mammogram was performed 1 year(s) and 1 month(s) ago. Patient History: Menarche at age 17. First Full-Term at age 22. Hysterectomy at age 34. Patient has history of breast feeding. Risk Values: Sheryl 5 year model risk: 1.2%. NCI Lifetime model risk: 5.7%. Prior Study Comparison: 06/12/2020 Bilateral Screening Mammogram, [facility]. 06/13/2021 Bilateral Screening Mammogram, [facility]. 06/16/2022 Bilateral MG 3D screening mammo w/cad, [facility]. Tissue Density: There are scattered fibroglandular densities. Findings: Analyzed By CAD. Pattern appears symmetrical and stable. No suspicious groups of microcalcifications, spiculated or lobular masses, architectural distortion or other secondary signs of malignancy are mammographically apparent. Overall Assessment: Negative, BI-RAD 1 Management: Screening Mammogram of both breasts in 1 year. A negative mammogram report should not preclude additional follow up of suspicious palpable abnormalities. Patient should continue monthly self breast exam. A clinical breast exam by your physician is recommended on an annual basis and results should be correlated with mammographic findings. Electronically signed and approved by: Zachery Johnson D.O. Radiologis
== END | disposition home or self-care (01) ==
LOC: RADMAMWWP 10:17
PROVIDERS: ATTEND Internal Medicine
DX: Z12.31 Encounter for screening mammogram for malignant neoplasm of breast (principal)
CPT/HCPCS: 77063; 77067

== ENCOUNTER → 2023-07-23 | Outpatient (CLI) | payer BC ==
--- NOTE | 2023-07-23 16:57 | US ---
EXAMINATION TYPE: US kidneys/renal and bladder DATE OF EXAM: 07/23/2023 COMPARISON: CT 2019, US 2014 CLINICAL INDICATION: Female, 63 years old with history of R10.9 ABD PAIN; Left flank pain, hematuria EXAM MEASUREMENTS: Right Kidney: 10.8 x 4.6 x 4.9 cm Left Kidney: 10.8 x 4.6 x 4.6 cm Right Kidney: No hydronephrosis or masses seen Left Kidney: No hydronephrosis or masses seen Bladder: wnl Bilateral Jets seen: No There is no evidence for hydronephrosis at this point in time. No nephrolithiasis is seen. No bria s are identified. The urinary bladder is anechoic. IMPRESSION: No evidence for obstructive uropathy.
== END | disposition home or self-care (01) ==
LOC: RADUSWWP 15:22
PROVIDERS: ATTEND Internal Medicine
DX: R10.9 Unspecified abdominal pain (principal); R31.9 Hematuria, unspecified
CPT/HCPCS: 76770

== ENCOUNTER → 2023-10-02 | Outpatient (CLI) | payer BC ==
[2023-10-03 02:02] LABS: Basophils # (A) 0.04 X 10*3/uL (0.00-0.10); Basophils % (A) 0.8 %; Eosinophils # (A) 0.11 X 10*3/uL (0.04-0.35); Eosinophils % (A) 2.1 %; HCT 44.1 % (37.2-46.3); HGB 14.4 g/dL (12.0-15.0); Lymphocytes # (A) 1.73 X 10*3/uL (0.90-5.00); Lymphocytes % (A) 33.7 %; MCH 27.8 pg (27.0-32.0); MCHC 32.7 g/dL (32.0-37.0); MCV 85.1 FL (80.0-97.0); Monocytes # (A) 0.35 X 10*3/uL (0.20-1.00); Monocytes % (A) 6.8 %; NRBC Per 100 WBC 0 X 10*3/uL (0.00-0.01); Neutrophils % (A) 56.4 %; Platelet Count 292 X 10*3/uL (140-440); RBC 5.18 X 10*6/uL (4.10-5.20); RDW 13.2 % (11.5-14.5); WBC 5.14 X 10*3/uL (4.50-10.00)
[2023-10-03 02:11] LABS: Rheumatoid Factor, Qnt <15 IU/mL (0-15); Uric Acid 5.9 mg/dL (2.9-7.7)
[2023-10-03 03:46] LABS: Erythrocyte Sedimentation Rate 7 mm/Hr (0-30)
== END | disposition home or self-care (01) ==
LOC: LABWHC1 14:26
PROVIDERS: ATTEND Podiatrist Foot & Ankle Surgery
DX: M19.90 Unspecified osteoarthritis, unspecified site (principal); B99.9 Unspecified infectious disease
CPT/HCPCS: 36415; 84550; 85025; 85652; 86038; 86431

== ENCOUNTER 2023-11-20 08:16 | Day surgery (SDC) | payer BC ==
[2023-11-20] MEDS ORDERED: LACTATED RINGERS 1,000 ML IV SCH (08:30)
[2023-11-20] MEDS ORDERED: LIDOCAINE 1% (10MG/ML) FOR IV START INTRADERMA ONE (09:05)
[2023-11-20 09:06] VITALS: TEMP 97
[2023-11-20] MEDS ORDERED: PHENYLEPHRINE-0.9% NACL SYG 1,000 MCG/10 ML SYRINGE ONE (09:14)
[2023-11-20] MEDS ORDERED: PROPOFOL 10 MG/ML 20 ML VIAL IV ONE (09:14)
[2023-11-20 09:20] LABS: Glucose,Whole Blood 130 mg/dL (70-110)
--- NOTE | 2023-11-20 09:29 | P.PCN ---
Date of Procedure: 11/20/23 Procedure(s) Performed: BRIEF HISTORY: Patient is a 63-year-old pleasant white female scheduled for an elective colonoscopy as a part of screening for colon cancer. PROCEDURE PERFORMED: Colonoscopy with snare polypectomy. PREOPERATIVE DIAGNOSIS: Screening for colon cancer. IV sedation per Anesthesia. PROCEDURE: After informed consent was obtained, the patient, was brought into the endoscopy unit. IV sedation was administered by Anesthesia under continuous monitoring. Digital rectal examination was normal. Initially the Olympus CF-160 flexible video colonoscope was then inserted in the rectum, gradually advanced into the cecum without any difficulty. Careful examination was performed as the scope was gradually being withdrawn. Ileocecal valve and the appendiceal orifice were visualized and appeared normal. Prep was excellent. Mucosa of the cecum, ascending colon, appeared normal. The transverse colon there was an 8 mm polyp removed by snare polypectomy. In the descending colon there was a 3 mm and 1 cm polyp removed snare polypectomy. Rest of the transverse colon, descending col on, sigmoid colon, and rectum appeared normal. scattered similar because of seen. In the rectum there were 2 polyps measuring 3 mm in size both of which were removed by cold snare polypectomy Retroflexion was performed in the rectum and no lesions were seen. The patient tolerated the procedure well. IMPRESSION: 8 mm transverse colon polyp status post cold snare polypectomy 3 mm and 1 cm desscending colon polyp status post snare polypectomy 3 mm 2 rectal polyps status post polypectomy Scattered sigmoid diverticulosis RECOMMENDATIONS: Findings of this examination were discussed with the patient as well as his family. She was advised to follow with the biopsy results. If the biopsy reveals adenoma she can have a repeat colonoscopy in 3 years..
[2023-11-20 09:55] VITALS: BP 107/67; PULSE 70; RESP 18
== END 2023-11-20 10:13 | disposition home or self-care (01) ==
LOC: ORWHC2ENDO 08:16
PROVIDERS: ATTEND Internal Medicine Gastroenterology
DX: Z12.11 Encounter for screening for malignant neoplasm of colon (principal); D12.3 Benign neoplasm of transverse colon; D12.4 Benign neoplasm of descending colon; D12.8 Benign neoplasm of rectum; K57.30 Diverticulosis of large intestine without perforation or abscess without bleeding; I10 Essential (primary) hypertension; F41.9 Anxiety disorder, unspecified; K21.9 Gastro-esophageal reflux disease without esophagitis; K76.0 Fatty (change of) liver, not elsewhere classified; Z79.82 Long term (current) use of aspirin; Z79.01 Long term (current) use of anticoagulants; Z79.899 Other long term (current) drug therapy; Z90.710 Acquired absence of both cervix and uterus; Z98.890 Other specified postprocedural states; Z88.8 Allergy status to other drugs, medicaments and biological substances
CPT/HCPCS: 88305; 45385; J2704; J2371

== ENCOUNTER 2024-04-08 08:15 | Emergency (ER) | payer OTHER ==
[2024-04-08] MEDS: KETOROLAC 15 MG/ML 1 ML VIAL IVP STA (09:08)
--- NOTE | 2024-04-08 09:17 | ED ---
Back Pain HPI - General Chief Complaint: Back Pain/Injury Stated Complaint: Fall-chest/back pain Time Seen by Provider: 04/08/24 08:35 Source: patient, RN notes reviewed Limitations: no limitations - History of Present Illness Initial Comments: 64-year-old female presents emergency department chief complaint of back pain. Patient states she had a fall states that she did follow-up with urgent care there is muscle skeletal had no x-rays at the time she states initially is right rib pain into her back states that she only has thoracic back pain she states she cannot get comfortable pain is worse than it was before she has had no relief with meds at home. She states sometimes she feels short of breath. Patient denies any rashes denies any head injury no loss conscious. Patient states she is diabetic. - Related Data Home Medications Medication Instructions Recorded Confirmed Aspirin EC [Ecotrin Low Dose] 81 mg PO DAILY 03/10/16 11/13/23 Multivitamins, Thera [Multivitamin] 1 tab PO DAILY 03/10/16 11/13/23 ALPRAZolam [Xanax] 0.25 mg PO HS PRN 09/23/18 11/13/23 Magnesium Gluconate [Magonate] 500 mg PO HS 09/23/18 11/13/23 Stool Softener 2 tab PO BID 09/23/18 11/13/23 Pantoprazole [Protonix] 40 mg PO HS PRN 08/13/20 11/13/23 Apple Cider Vinegar Gummie(Ukn 500 mg PO DAILY 11/13/23 11/13/23 Cbd Gummie(Unk) 1 tab PO HS PRN 11/13/23 11/13/23 Cinnamon(Unk) 2,000 mg PO HS 11/13/23 11/13/23 Labetalol HCl 100 mg PO BID 11/13/23 11/13/23 Potassium(Unk) 99 meq PO DAILY 11/13/23 11/13/23 Vit D5 (Unk) 125 mcg PO DAILY 11/13/23 11/13/23 amLODIPine BESYLATE [Amlodipine 10 mg PO DAILY 11/13/23 11/13/23 Besylate] traMADol HCL 50 mg PO BID PRN 11/13/23 11/13/23 Previous Rx's Medication Instructions Recorded Cyclobenzaprine [Flexeril] 10 mg PO TID PRN #15 tab 04/08/24 Allergies Allergy/AdvReac Type Severity Reaction Status Date / Time quinine Allergy Nausea & Verified 04/08/24 08:21 Vomiting, dizzy Review of Systems ROS Statement: Those systems with pertinent positive or pertinent negative responses have been documented in the HPI. ROS Other: All systems not noted in ROS Statement are negative. Past Medical History Past Medical History: GERD/Reflux, Hypertension Additional Past Medical History / Comment(s): hx kidney stones, leg spasms, hx of partial retinal tear, fatty liver,kidney stones x2 History of Any Multi-Drug Resistant Organisms: None Reported Past Surgical History: Bladder Surgery, Hysterectomy, Orthopedic Surgery Additional Past Surgical History / Comment(s): Partial Hysterectomy, bladder suspension x2, lithotripsy, left carpal tunnel, epidural steriod injection x2,surgery to release pressure in eye x2 esau Past Anesthesia/Blood Transfusion Reactions: No Reported Reaction Additional Past Anesthesia/Blood Transfusion Reaction / Comment(s): takes more to put her to sleep. Past Psychological History: Anxiety Smoking Status: Never smoker Past Alcohol Use History: None Reported Past Drug Use History: None Reported - Past Family History Mother Family Medical History: No Reported History Father Additional Family Medical History / Comment(s): CABG Brother(s) Additional Family Medical History / Comment(s): STENTS, CABG General Exam Limitations: no limitations General appearance: alert, in no apparent distress Head exam: Present: atraumatic, normocephalic, normal inspection Eye exam: Present: normal appearance, PERRL, EOMI. Absent: scleral icterus, conjunctival injection, periorbital swelling ENT exam: Present: normal exam, normal oropharynx, mucous membranes moist Neck exam: Present: normal inspection, full ROM. Absent: tenderness, meni ngismus, lymphadenopathy Respiratory exam: Present: normal lung sounds bilaterally, chest wall tenderness. Absent: respiratory distress, wheezes, rales, rhonchi, stridor Cardiovascular Exam: Present: regular rate, normal rhythm, normal heart sounds. Absent: systolic murmur, diastolic murmur, rubs, gallop, clicks GI/Abdominal exam: Present: soft, normal bowel sounds. Absent: distended, tenderness, guarding, rebound, rigid Back exam: Present: full ROM, tenderness, paraspinal tenderness, vertebral tenderness Neurological exam: Absent: motor sensory deficit Course Vital Signs 04/08/24 04/08/24 08:18 08:49 Temperature 98.0 F Pulse Rate 86 77 Respiratory 16 18 Rate Blood Pressure 180/108 168/99 O2 Sat by Pulse 98 97 Oximetry Medical Decision Making - Medical Decision Making Was pt. sent in by a medical professional or institution (, ANISH, SPECIAL ED ASSISTANT, urgent care, hospital, or [place] health care facility...) When possible be specific @ -No Did you speak to anyone other than the patient for history (EMS, parent, family, police, friend...)? What history was obtained from this source @ -No Did you review nursing and triage notes (agree or disagree)? Why? @ -I reviewed and agree with nursing and triage notes Were old charts reviewed (outside hosp., previous admission, EMS record, old EKG, old radiological studies, urgent care reports/EKG's, [place] health care facility records)? Report findings @ -No old charts were reviewed Differential Diagnosis (chest pain, altered mental status, abdominal pain women, abdominal pain men, vaginal bleeding, weakness, fever, dyspnea, syncope, headache, dizziness, GI bleed, back pain, seizure, CVA, palpatations, mental health, musculoskeletal)? @ -Differential Back Pain: Strain, zoster, cauda equina syndrome, epidural abscess, vertebral osteomyelitis, discitis, fracture, subluxation, disc herniation, DJD, spinal stenosis, dissection, AAA, pancreatitis, peptic ulcer disease, pyelonephritis, kidney stone, this is not meant to be an all-inclusive list. EKG interpreted by me (3pts min.). @ -As above X-rays interpreted by me (1pt min.). @ -Chest x-ray shows no acute cardiopulmonary process CT interpreted by me (1pt min.). @ -None done U/S interpreted by me (1pt. min.). @ -None done What testing was considered but not performed or refused? (CT, X-rays, U/S, labs)? Why? @ -None What meds were considered but not given or refused? Why? @ -None Did you discuss the management of the patient with other professionals (professionals i.e. ANISH Hylton, SPECIAL ED ASSISTANT, lab, RT, psych nurse, social science teacher, dry lumber grader, teacher, senior major gifts officer, casework specialist)? Give summary @ -No Was smoking cessation discussed for >3mins.? @ -No Was critical care preformed (if so, how long)? @ -No Were there social determinants of health that impacted care today? How? (Homelessness, low income, unemployed, alcoholism, drug addiction, transportation, low edu. Level, literacy, decrease access to med. care, half-way, rehab)? @ -No Was there de-escalation of care discussed even if they declined (Discuss DNR or withdrawal of care, Hospice)? DNR status @ -No What co-morbidities impacted this encounter? (DM, HTN, Smoking, COPD, CAD, Cancer, CVA, ARF, Chemo, Hep., AIDS, mental health diagnosis, sleep apnea, morbid obesity)? @ -Diabetes Was patient admitted / discharged? Hospital course, mention meds given and route, prescriptions, significant lab abnormalities, going to OR and other pertinent info. @ -Patient did have before concluding labs, x-rays and EKG with no acute findings. She has no anterior chest pain no complaints of chest pain D-dimer is negative. Patient has reproducible thoracic pain paraspinal region this appears to be from the fall as it has been persistent since her fall she is advised to follow-up with PCP, orthopedics. Undiagnosed new problem with uncertain prognosis? @ -No Drug Therapy requiring intensive monitoring for toxicity (Heparin, Nitro, Insulin, Cardizem)? @ -No Were any procedures done? @ -No Diagnosis/symptom? @ -Thoracic back pain, fall Acute, or Chronic, or Acute on Chronic? @ -Acute Uncomplicated (without systemic symptoms) or Complicated (systemic symptoms)? @ -Uncomplicated Side effects of treatment? @ -No Exacerbation, Progression, or Severe Exacerbation? @ -No Poses a threat to life or bodily function? How? (Chest pain, USA, GA, pneumonia, PE, COPD, DKA, ARF, appy, cholecystitis, CVA, Diverticulitis, Homicidal, Suicidal, threat to staff... and all critical care pts) @ -No - Lab Data Result diagrams: 04/08/24 09:11 04/08/24 09:11 Lab Results 04/08/24 04/08/24 04/08/24 Range/Units 09:11 09:11 09:11 WBC 4.7 (3.8-10.6) k/uL RBC 5.30 (3.80-5.40) m/uL Hgb 14.9 (11.4-16.0) gm/dL Hct 43.7 (34.0-46.0) % MCV 82.3 (80.0-100.0) fL MCH 28.0 (25.0-35.0) pg MCHC 34.0 (31.0-37.0) g/dL RDW 12.7 (11.5-15.5) % Plt Count 242 (150-450) k/uL MPV 8.0 Neutrophils % 57 % Lymphocytes % 32 % Monocytes % 6 % Eosinophils % 3 % Basophils % 1 % Neutrophils # 2.7 (1.3-7.7) k/uL Lymphocytes # 1.5 (1.0-4.8) k/uL Monocytes # 0.3 (0-1.0) k/uL Eosinophils # 0.2 (0-0.7) k/uL Basophils # 0.0 (0-0.2) k/uL PT 10.8 (10.0-12.5) sec INR 1.0 (<1.2) APTT 23.4 (22.0-30.0) sec D-Dimer 0.44 (<0.60) mg/L FEU Sodium 139 (137-145) mmol/L Potassium 4.4 (3.5-5.1) mmol/L Chloride 105 (98-107) mmol/L Carbon Dioxide 26 (22-30) mmol/L Anion Gap 8 mmol/L BUN 12 (7-17) mg/dL Creatinine 0.54 (0.52-1.04) mg/dL Est GFR (CKD-EPI)AfAm >90 (>60 ml/min/1.73 sqM) Est GFR (CKD-EPI)NonAf >90 (>60 ml/min/1.73 sqM) Glucose 146 H (74-99) mg/dL Calcium 9.5 (8.4-10.2) mg/dL Total Bilirubin 0.7 (0.2-1.3) mg/dL AST 48 H (14-36) U/L ALT 69 H (4-34) U/L Alkaline Phosphatase 107 (38-126) U/L Troponin I (0.000-0.034) ng/mL Total Protein 6.9 (6.3-8.2) g/dL Albumin 4.2 (3.5-5.0) g/dL 04/08/24 Range/Units 09:11 WBC (3.8-10.6) k/uL RBC (3.80-5.40) m/uL Hgb (11.4-16.0) gm/dL Hct (34.0-46.0) % MCV (80.0-100.0) fL MCH (25.0-35.0) pg MCHC (31.0-37.0) g/dL RDW (11.5-15.5) % Plt Count (150-450) k/uL MPV Neutrophils % % Lymphocytes % % Monocytes % % Eosinophils % % Basophils % % Neutrophils # (1.3-7.7) k/uL Lymphocytes # (1.0-4.8) k/uL Monocytes # (0-1.0) k/uL Eosinophils # (0-0.7) k/uL Basophils # (0-0.2) k/uL PT (10.0-12.5) sec INR (<1.2) APTT (22.0-30.0) sec D-Dimer (<0.60) mg/L FEU Sodium (137-145) mmol/L Potassium (3.5-5.1) mmol/L Chloride (98-107) mmol/L Carbon Dioxide (22-30) mmol/L Anion Gap mmol/L BUN (7-17) mg/dL Creatinine (0.52-1.04) mg/dL Est GFR (CKD-EPI)AfAm (>60 ml/min/1.73 sqM) Est GFR (CKD-EPI)NonAf (>60 ml/min/1.73 sqM) Glucose (74-99) mg/dL Calcium (8.4-10.2) mg/dL Total Bilirubin (0.2-1.3) mg/dL AST (14-36) U/L ALT (4-34) U/L Alkaline Phosphatase (38-126) U/L Troponin I 0.013 (0.000-0.034) ng/mL Total Protein (6.3-8.2) g/dL Albumin (3.5-5.0) g/dL - EKG Data -: EKG Interpreted by Me EKG Comments: EKG performed at 9: 11 sinus rhythm rate of 77 CA 140 QRS 98 QT/QTc 370/401 Disposition Clinical Impression: Thoracic back pain Disposition: HOME SELF-CARE Condition: Stable Instructions (If sedation given, give patient instructions): Back Pain (ED) Additional Instructions: Please return to the Emergency Department if symptoms worsen or any other concerns. Prescriptions: Cyclobenzaprine [Flexeril] 10 mg PO TID PRN #15 tab PRN Reason: Muscle Spasm Is patient prescribed a controlled substance at d/c from ED?: No Referrals: Rafael Morrell MD [Primary Care Provider] - 1-2 days Time of Disposition: 11:06
[2024-04-08 09:29] LABS: Basophils % (A) 1 %; Eosinophils # (A) 0.2 k/uL (0-0.7); Eosinophils % (A) 3 %; HCT 43.7 % (34.0-46.0); HGB 14.9 gm/dL (11.4-16.0); Lymphocytes # (A) 1.5 k/uL (1.0-4.8); Lymphocytes % (A) 32 %; MCV 82.3 fL (80.0-100.0); Monocytes # (A) 0.3 k/uL (0-1.0); Monocytes % (A) 6 %; Neutrophils # (A) 2.7 k/uL (1.3-7.7); Neutrophils % (A) 57 %; Platelet Count 242 k/uL (150-450); RDW 12.7 % (11.5-15.5); WBC 4.7 k/uL (3.8-10.6)
[2024-04-08 09:32] VITALS: RESP 18
[2024-04-08 09:46] LABS: Partial Thromboplastin Time 23.4 sec (22.0-30.0); Prothrombin Time 10.8 sec (10.0-12.5)
[2024-04-08 09:48] LABS: ALT 69 U/L (4-34); AST 48 U/L (14-36); African American GFR (CKD) >90 (>60 ml/min/1.73 sqM); Albumin 4.2 g/dL (3.5-5.0); Alkaline Phosphatase 107 U/L (38-126); Anion Gap 8 mmol/L; Blood Urea Nitrogen 12 mg/dL (7-17); Calcium 9.5 mg/dL (8.4-10.2); Carbon Dioxide 26 mmol/L (22-30); Chloride 105 mmol/L (98-107); Glucose 146 mg/dL (74-99); Non-African American GFR(CKD) >90 (>60 ml/min/1.73 sqM); Potassium 4.4 mmol/L (3.5-5.1); Sodium 139 mmol/L (137-145); Total Bilirubin 0.7 mg/dL (0.2-1.3); Total Protein 6.9 g/dL (6.3-8.2)
--- NOTE | 2024-04-08 10:12 | XR ---
EXAMINATION TYPE: XR chest 2V DATE OF EXAM: 04/08/2024 COMPARISON: 04/03/2015 HISTORY: 64 year-old female chest pain, thoracic back pain TECHNIQUE: PA and lateral views FINDINGS: Heart normal size. Aorta and pulmonary vasculature within normal limits. Mild interstitial prominence without consolidation or pleural effusion. [facility] mid and lower thoracic spine. IMPRESSION: Chronic changes, possible bronchitis or asthma. No acute process seen.
[2024-04-08] MEDS: ACET/COD 300 MG/30 MG STARTER PACK 6 TAB BTL PO STA (11:20)
[2024-04-08] MEDS: CYCLOBENZAPRINE 10MG STARTER 3 TAB BTL PO STA (11:20)
[2024-04-08 12:24] VITALS: BP 171/98; PULSE 80; TEMP 98
== END 2024-04-08 11:32 | disposition home or self-care (01) ==
LOC: EC 08:15
DX: M54.6 Pain in thoracic spine (principal); Z88.8 Allergy status to other drugs, medicaments and biological substances
CPT/HCPCS: 36415; 93005; 85379; 80053; 84484; 85025; 85610; 85730; 71046; 99284; 96374; J1885

== ENCOUNTER → 2024-07-20 | Outpatient (CLI) | payer BC ==
--- NOTE | 2024-08-01 18:38 | MM ---
Reason for Exam: Screening (asymptomatic). Last screening mammogram was performed 12 month(s) ago. Patient History: Menarche at age 17. First Full-Term at age 22. Hysterectomy at age 34. Postmenopausal. Patient has history of breast feeding. Risk Values: Sheryl 5 year model risk: 1.3%. NCI Lifetime model risk: 5.5%. Prior Study Comparison: 06/13/2021 Bilateral Screening Mammogram, [facility]. 06/16/2022 Bilateral MG 3D screening mammo w/cad, [facility]. 07/07/2023 Bilateral MG 3D screening mammo w/cad, [facility]. Tissue Density: There are scattered areas of fibroglandular density. Findings: Analyzed By CAD. There is no suspicious group of microcalcifications or new suspicious mass in either breast. Overall Assessment: Negative, BI-RAD 1 Management: Screening Mammogram of both breasts in 1 year. . Patient should continue monthly self-breast exams. A clinical breast exam by your physician is recommended on an annual basis. This exam should not preclude additional follow-up of suspicious palpable abnormalities. Note on Sheryl scores and lifetime risk: 1. A Sheryl score greater than 3% is considered moderate risk. If this is the case, consider specialist referral to assess eligibility for a risk reducing agent. 2. If overall lifetime risk for the development of breast cancer is 20% or higher, the patient may qualify for future screening with alternating mammogram and breast MRI. Electronically signed and approved by: Ananth Barth DO
== END | disposition home or self-care (01) ==
LOC: RADMAMWWP 07:06
PROVIDERS: ATTEND Internal Medicine
DX: Z12.31 Encounter for screening mammogram for malignant neoplasm of breast
CPT/HCPCS: 77063; 77067